=== PATIENT | male | born 1980 | race Caucasian/White ===

== ENCOUNTER 2017-10-30 11:10 | Day surgery (SDC) | payer OTHER ==
[2017-10-30] MEDS ORDERED: LIDOCAINE 2% (SDV) 5 ML INJ (12:01)
[2017-10-30] MEDS ORDERED: FENTAnyl 50 MCG/ML VIAL (12:01)
[2017-10-30] MEDS ORDERED: PROPOFOL 40 ML (12:01)
[2017-10-30] MEDS ORDERED: LIDOCAINE 4% SOLUTION 50 ML BTL (12:01)
== END 2017-10-30 16:11 | disposition home or self-care (01) ==
LOC: GIL 11:10
DX: K29.70 Gastritis, unspecified, without bleeding (principal); K44.9 Diaphragmatic hernia without obstruction or gangrene; K21.9 Gastro-esophageal reflux disease without esophagitis; E66.9 Obesity, unspecified; Z68.36 Body mass index [BMI] 36.0-36.9, adult
CPT/HCPCS: 43239; 88305